=== PATIENT | female | born 1955 | race African-American/Black ===

== ENCOUNTER 2020-12-10 12:01 | Emergency (ER) | payer OTHER ==
[~2020-12-10] VITALS: Ht 165.1 cm; Wt 80.0 kg
[2020-12-10] MEDS ORDERED: ASPIRIN 81MG TABLET PO ONE (12:30)
[2020-12-10 14:50] LABS: HEMOGLOBIN. 11.8 g/dL (12.0-16.0); MEAN PLATELET VOLUME 8.5 fl (7.4-10.4); PLATELET 266 x1000/uL (130-400); RED BLOOD CELL COUNT 4.22 mill/uL (4.2-5.4); RED CELL DISTRIBUTION WIDTH 16.5 % (11.6-14.6)
[2020-12-10 14:52] LABS: CHLORIDE 107 mEq/L (98-107)
[2020-12-10 15:02] VITALS: BP 166/91
[2020-12-10] MEDS ORDERED: NITROGLYCERIN OINT 1GM/INCH UDPKT TD NR (15:15)
[2020-12-10] MEDS ORDERED: FUROSEMIDE 40MG/4ML VIAL IVP NR (15:15)
[2020-12-10 17:07] LABS: PLATELET ESTIMATE NORMAL
== END 2020-12-10 15:50 | disposition left against medical advice (07) ==
LOC: ER 12:01
DX: I11.0 Hypertensive heart disease with heart failure (principal); I50.9 Heart failure, unspecified; E11.9 Type 2 diabetes mellitus without complications; Z88.3 Allergy status to other anti-infective agents; Z88.8 Allergy status to other drugs, medicaments and biological substances
CPT/HCPCS: 36415; 71045; 80053; 83880; 84484; 85025; 93005; 93970; 99285